=== PATIENT | male | born 1980 | race Caucasian/White ===

== ENCOUNTER 2016-07-22 15:34 | Emergency (ER) | payer BC ==
[2016-07-22 16:10] VITALS: BP 130/86
--- NOTE | 2016-07-22 16:59 | UC ---
Abdominal Pain Male HPI - HPI Summary HPI Summary: This is a 35 yo male with h/o ulcerative colitis who comes in with complaints of vomiting. Patient has occasional vomiting in the mornings but this afternoon after a relay race vomited several times. He noted "red chunks" present and was concerned about the presence of blood. He reported the remainder of the vomit was orange in color. No pooling of blood. He reports that he ate raspberries for lunch. He denies assoc abdominal pain or persistent nausea. No fevers or other recent illness. He is followed by GI specialist and is on a probiotic only for control of his symptoms at this time. He reports frequent non-bloody diarrhea and cramping abdominal pain which is chronic for him. He does report frequent heart burn and morning vomiting with some generalized abdominal discomfort. - History of Current Complaint Chief Complaint: UCGI Stated Complaint: VOMITING POSS BLOOD - Allergies/Home Medications Allergies/Adverse Reactions: Allergies Allergy/AdvReac Type Severity Reaction Status Date / Time No Known Allergies Allergy Verified 10/25/13 10:59 Home Medications: Home Medications Probiotic Product [Probiotic] 1 tab PO 07/22/16 [History] PMH/Surg Hx/FS Hx/Imm Hx Endocrine History Of: Denies: Diabetes, Thyroid Disease Cardiovascular History Of: Denies: Cardiac Disorders, Hypertension Respiratory History Of: Denies: COPD, Asthma GI/ History Of: Denies: Ulcer - Surgical History Surgical History: None - Social History Alcohol Use: Occasionally Substance Use Type: None Smoking Status (MU): Never Smoked Tobacco Have You Smoked in the Last Year: No Review of Systems Constitutional: Negative Skin: Negative Eyes: Negative ENT: Negative Respiratory: Negative Cardiovascular: Negative Gastrointestinal: Vomiting Genitourinary: Negative Motor: Negative Neurovascular: Negative Musculoskeletal: Negative Neurological: Negative Psychological: Negative All Other Systems Reviewed And Are Negative: Yes Physical Exam Triage Information Reviewed: Yes Vital Signs: Initial Vital Signs Temp 98.3 F 07/22/16 16:05 Pulse 107 07/22/16 16:05 Resp 18 07/22/16 16:05 BP 130/86 07/22/16 16:05 Pulse Ox 98 07/22/16 16:05 Vital Signs Reviewed: Yes Respiratory Exam: Normal Respiratory: Positive: Chest non-tender, Lungs clear, Normal breath sounds. Negative: Crackles, Rhonchi, Wheezing Cardiovascular Exam: Normal Cardiovascular: Positive: RRR, No Murmur Abdominal Exam: Normal Abdomen Description: Positive: Nontender Neurological: Positive: Alert, Muscle Tone Normal Psychological Exam: Normal Skin Exam: Normal Skin: Negative: rashes Re-Evaluation - Re-Evaluation First Eval Re-Evaluation Time: 16:45 Change: Improved Comment: Repeat pulse 94 bpm Abd Pain Male Course/Dx - Course Course Of Treatment: From patient's description of his lunch contents and his vomit it seems unlikely that his vomitus was blood. It does sound like he does have GERD and recommend starting a PPI. Recommend close follow up with PCP and proceed to ER if he has another episode of vomiting that appears bloody. - Differential Dx/Clinical Impression Provider Diagnoses: Gastritis/GERD Discharge - Discharge Plan Condition: Stable Disposition: HOME Prescriptions: Pantoprazole Sodium [Protonix] 20 mg PO DAILY #30 tab Referrals: Jennifer Telles MD [Primary Care Provider] - 2 Weeks Additional Instructions: Activity: As tolerated Instructions: 1. Start taking Protonix (stomach medicine) 2. Follow up with your PCP within the next weeks to discuss this visit 3. Proceed to the ER with obvious bloody vomit
== END 2016-07-22 17:05 | disposition home or self-care (01) ==
LOC: UCEAST 15:34
DX: R11.10 Vomiting, unspecified (principal); Z87.19 Personal history of other diseases of the digestive system
CPT/HCPCS: 99212; G0463